=== PATIENT | female | born 1980 | race African-American/Black ===

== ENCOUNTER → 2018-01-25 | Outpatient (CLI) | payer BC ==
--- NOTE | 2018-01-25 17:44 | RADIOLOGY REPORT (SQ) ---
EXAM DESCRIPTION: U/S NON-OB PELVIS TV W/O DOP COMPLETED DATE/TIME: 01/25/2018 5:34 pm REASON FOR STUDY: CRAMPING, BLEEDING R10.2 PELVIC AND PERINEAL PAIN COMPARISON: None. TECHNIQUE: Dynamic and static grayscale images acquired of the pelvis via transvaginal approach and recorded on PACS. Additional selected color Doppler and spectral images recorded. LIMITATIONS: None. FINDINGS: UTERUS: Contour normal. No mass. ENDOMETRIAL STRIPE: No focal or generalized thickening. No masses. CERVIX: No nabothian cysts. RIGHT OVARY AND DOPPLER: Normal size. No worrisome masses. Normal arterial vascular flow without evid ence for torsion. 1.4 cm functional cysts. LEFT OVARY AND DOPPLER: Ovary not visualized. FREE FLUID: Mild OTHER: No other significant finding. MEASUREMENTS: UTERUS: 7.6 cm ENDOMETRIAL STRIPE: 8.1 mm RIGHT OVARY: 1.9 x 3.7 x 2 cm LEFT OVARY: Not visualized. IMPRESSION: Small amount of fluid in the cul de sac. Otherwise normal study. TECHNICAL DOCUMENTATION: JOB ID: [id number]- All Rights Reserved Rev-07/06 Reading location - IP/workstation name: [email or web address]
== END ==
LOC: RAD 16:11
PROVIDERS: ATTEND Student in an Organized Health Care Education/Training Program
DX: R10.2 Pelvic and perineal pain (principal)
CPT/HCPCS: 36415; 76830; 84702

== ENCOUNTER → 2018-07-02 | Outpatient (CLI) | payer BC ==
--- NOTE | 2018-07-02 17:15 | RADIOLOGY REPORT (SQ) ---
EXAM DESCRIPTION: RIBS LEFT W/PA CHEST COMPLETED DATE/TIME: 07/02/2018 5:06 pm REASON FOR STUDY: LEFT RIB DISCOMFORT R10.9 UNSPECIFIED ABDOMINAL PAIN R07.81 PLEURODYNIA COMPARISON: None. TECHNIQUE: Frontal view of the chest and additional views of the right ribs acquired. NUMBER OF VIEWS: Three view. LIMITATIONS: None. FINDINGS: FRONTAL CXR: No pneumothorax. No pleural effusion. No atelectasis or infiltrates. RIBS: No displaced rib fractures. No lytic or blastic bony lesions. OTHER: No other significant finding. IMPRESSION: NO PNEUMOTHORAX. NO DISPLACED RIB FRACTURES. COMMENT: SITE OF TRAUMA/COMPLAINT MARKED/STAMP COMPLETED: NO. TECHNICAL DOCUMENTATION: JOB ID: [id number] [employer]- All Rights Reserved Reading location - IP/workstation name: [email or web address]
== END ==
LOC: RAD 16:47
PROVIDERS: ATTEND Student in an Organized Health Care Education/Training Program
DX: R10.9 Unspecified abdominal pain (principal); R07.81 Pleurodynia

== ENCOUNTER → 2018-07-05 | Outpatient (CLI) | payer BC ==
--- NOTE | 2018-07-05 10:55 | WOMENS IMAGING REPORT ---
EXAM DESCRIPTION: U/S ABDOMEN TOTAL COMPLETED DATE/TIME: 07/05/2018 8:18 am REASON FOR STUDY: R10.9 UNSPECIFIED ABDOMINAL PAIN, R07.81 PLEURODYNIA R10.9 UNSPECIFIED ABDOMINAL PAIN COMPARISON: None. TECHNIQUE: Dynamic and static grayscale images acquired of the abdomen and recorded on PACS. Additio nal selected color Doppler and spectral images recorded. Note: Study does not meet criteria for complete doppler/duplex scan LIMITATIONS: None. FINDINGS: PANCREAS: No masses. Visualized pancreatic duct normal caliber. LIVER: No masses. Echotexture normal. LIVER VASCULATURE: Normal directional flow of the main portal vein and hepatic veins. GALLBLADDER: No stones. Normal wall thickness. No pericholecystic fluid. ULTRASOUND-DETECTED BRANDT'S SIGN: Negative. INTRAHEPATIC DUCTS AND COMMON DUCT: CBD and intrahepatic ducts normal caliber. No filling defects. INFERIOR VENA CAVA: Normal flow. AORTA: No aneurysm. RIGHT KIDNEY: Normal size. Normal echogenicity. No solid or suspicious masses. No hydronephros is. No calcifications. LEFT KIDNEY: Normal size. Normal echogenicity. No solid or suspicious masses. No hydronephrosi s. No calcifications. SPLEEN: Normal size. No solid masses. PERITONEAL AND PLEURAL SPACES: No ascites or effusions. OTHER: No other significant finding. IMPRESSION: NORMAL ABDOMINAL ULTRASOUND. TECHNICAL DOCUMENTATION: JOB ID: [id number] [employer]- All Rights Reserved Reading location - IP/workstation name: [email or web address]
== END ==
LOC: WI 07:19
PROVIDERS: ATTEND Student in an Organized Health Care Education/Training Program
DX: R10.9 Unspecified abdominal pain (principal); R07.81 Pleurodynia
CPT/HCPCS: 76700

== ENCOUNTER → 2019-09-01 | Outpatient (CLI) | payer BC ==
--- NOTE | 2019-09-01 17:05 | RADIOLOGY REPORT (SQ) ---
EXAM DESCRIPTION: U/S THYROID/SFT TISS HD NECK IMAGES COMPLETED DATE/TIME: 09/01/2019 4:37 pm REASON FOR STUDY: R59.0 LOCALIZED ENLARGED LYMPH NODES R59.0 LOCALIZED ENLARGED LYMPH NODES COMPARISON: None. TECHNIQUE: Dynamic and static grayscale images acquired of the localized site of clinical concern an d recorded on PACS. Additional selected color Doppler and spectral images recorded. SITE OF CONCERN: Right and left neck LIMITATIONS: None. FINDINGS: SKIN AND SUBCUTANEOUS TISSUES: There are prominent bilateral cervical lymph nodes. On the right the largest measures 3.0 x 1.2 x 0.8 cm. On the left the largest measures 3.8 x 0.9 x 1.1 cm. These demonstrate typical sonographic appearance with central high attenuation. DEEP SOFT TISSUES/MUSCLES: No masses. No fluid collections. No edema. VASCULAR: No increased or decreased vascularity. No occlusions. OTHER: No other significant finding. IMPRESSION: Enlarged bilateral cervical lymph nodes. Most likely reactive. TECHNICAL DOCUMENTATION: JOB ID: [id number] [employer]- All Rights Reserved Reading location - IP/workstation name: [email or web address]
== END ==
LOC: RAD 15:51
PROVIDERS: ATTEND Family Medicine
DX: R59.0 Localized enlarged lymph nodes (principal)
CPT/HCPCS: 76536